=== PATIENT | male | born 1955 | race Caucasian/White ===

== ENCOUNTER 2016-07-22 17:36 | Emergency (ER) | payer MEDICAID ==
[2016-07-22 17:51] VITALS: BP 127/76; PULSE 53; RESP 17; TEMP 97.5; O2SAT 95
--- NOTE | 2016-07-22 18:23 | EDPHY ---
H & P Stated Complaint: Left hand index finger laceration Time Seen by Provider: 07/22/16 18:04 HPI/ROS: CHIEF COMPLAINT: Finger laceration HISTORY OF PRESENT ILLNESS: The patient is a 61-year-old man who comes to the emergency depart with his family. He cut his finger with a skill saw about 1 hour ago. He has a macerated left index finger just distal to the DIP joint. His hands are very dirty. He Does appear to have an open fracture. REVIEW OF SYSTEMS: Constitutional: denies: chills, fever, recent illness, recent injury EENTM: denies: blurred vision, double vision, nose congestion Respiratory: denies: cough, shortness of breath Cardiac: denies: chest pain, irregular heart rate, lightheadedness, palpitations Gastrointestinal/Abdominal: denies: abdominal pain, diarrhea, nausea, vomiting, blood streaked stools Genitourinary: denies: dysuria, frequency, hematuria, pain Musculoskeletal: See HPI Skin: See HPI Neurological: denies: headache, numbness, paresthesia, tingling, dizziness, weakness Hematologic/Lymphatic: denies: blood clots, easy bleeding, easy bruising Immunologic/allergic: denies: HIV/AIDS, transplant EXAM: GENERAL: Well-appearing, well-nourished and in no acute distress. HEAD: Atraumatic, normocephalic. EYES: Pupils equal round and reactive to light, extraocular movements intact, sclera anicteric, conjunctiva are normal. ENT: TMs normal, nares patent, oropharynx clear without exudates. Moist mucous membranes. NECK: Normal range of motion, supple without lymphadenopathy or JVD. LUNGS: Breath sounds clear to auscultation bilaterally and equal. No wheezes rales or rhonchi. HEART: Regular rate and rhythm without murmurs, rubs or gallops. ABDOMEN: Soft, nontender, normoactive bowel sounds. No guarding, no rebound. No masses appreciated. BACK: No CVA tenderness, no spinal tenderness, step-offs or deformities EXTREMITIES: Patient has a large macerated laceration to the left index finger just distal to the DIP. No movement at the DIP joint. Slightly decreased capillary refill. NEUROLOGICAL: Cranial nerves II through XII grossly intact. Normal speech, normal gait. 5/5 strength, normal movement in all extremities, normal sensation PSYCH: Normal mood, normal affect. SKIN: Warm, dry, normal turgor, no visible rashes or lesions. Source: Patient, Family Exam Limitations: No limitations - Personal History Current Tetanus/Diphtheria Vaccine: Yes Current Tetanus Diphtheria and Acellular Pertussis (TDAP): Yes - Medical/Surgical History Hx Asthma: No Hx Chronic Respiratory Disease: No Hx Diabetes: No Hx Cardiac Disease: No Hx Renal Disease: No Hx Cirrhosis: No Hx Alcoholism: No Hx HIV/AIDS: No Hx Splenectomy or Spleen Trauma: No Other PMH: Denies - Family History Significant Family History: No pertinent family hx - Social History Smoking Status: Never smoked Alcohol Use: Sober Drug Use: None Constitutional: Initial Vital Signs Temperature (C) 36.4 C 07/22/16 17:46 Heart Rate 53 L 07/22/16 17:46 Respiratory Rate 17 07/22/16 17:46 Blood Pressure 127/76 H 07/22/16 17:46 O2 Sat (%) 95 07/22/16 17:46 O2 Delivery Mode Room Air Allergies/Adverse Reactions: No Known Allergies Allergy (Unverified 07/22/16 17:46) Home Medications: Medication Instructions Recorded NK [No Known Home Meds] 07/22/16 Medical Decision Making - Diagnostics Imaging Results: Imaging Impressions Finger X-Ray 07/22/16 17:59 Impression: Comminuted, open intraarticular fracture involving base of distal phalanx. Patient has an open fracture to the distal phalanx of left index finger. The proximal aspect of the phalanx his obliterated and it does involve the articular surface. Imaging: I viewed and interpreted images myself Procedures: Procedure: Laceration repair. Verbal consent was obtained from the patient. The macerated left index finger laceration was anesthetized with 0.5% bupivacaine digital block. The wound was irrigated copiously according to protocol, draped and explored to its base. It was approximately 1 cm deep. No foreign body was identified. The wound was repaired with 4 point home PDS, 10 sutures, interrupted. The wound repair was complex with multiple flap realignment and revision . The procedure was performed by myself. A dressing was then placed with sterile gauze and bacitracin. Procedure: Splint placement. A tube gauze and finger aluminum splint was applied. After application of the splint I returned and re-examined the patient. The splint was adequately immobilizing the joint and distal to the splint the patient's circulation and sensation was intact. ED Course/Re-evaluation: Patient tolerated the procedure well. He was given IV antibiotics here and will be taking oral antibiotics home. I discussed the case with Dr. Coleman who agrees with treatment plan. Differential Diagnosis: Partial list of the Differential diagnosis considered include but were not limited to; laceration, open fracture, dislocation and although unlikely based on the history and physical exam, I also considered foreign body, vascular injury. I discussed these differential diagnoses and the plan with the patient as well as the usual and expected course. The patient understands that the diagnosis is provisional and that in medicine we are not always correct and that further workup is often warranted. Usual and customary warnings were given. All of the patient's questions were answered. The patient was instructed to return to the emergency department should the symptoms at all worsen or return, otherwise to followup with the physician as we discussed. - Data Points Medications Given: Discontinued Medications Hydrocodone Bitart/Acetaminophen (Morrison 5/325mg Prepack#6) 1 btl TAKEHOME EDNOW ONE Stop: 07/22/16 19:35 Last Admin: 07/22/16 20:01 Dose: 1 btl Cefazolin Sodium/Dextrose/ (Ceftriaxone Sodium/Dextrose) 50 mls @ 100 mls/hr IV EDNOW ONE PRN Reason: Protocol Stop: 07/22/16 18:56 Last Admin: 07/22/16 18:45 Dose: 50 mls Departure - Departure Disposition: Home, Routine, Self-Care Clinical Impression: Open fracture Finger laceration Qualifiers: Encounter type: initial encounter Qualified Code(s): S61.219A - Laceration without foreign body of unspecified finger without damage to nail, initial encounter Condition: Fair Instructions: Hydrocodone/Acetaminophen (By mouth), Finger Fracture (ED), Finger Laceration (ED) Referrals: Joshua Coleman MD [Medical Doctor] - As per Instructions
[2016-07-22] MEDS ORDERED: DEXTROSE IV ONE (18:27)
[2016-07-22] MEDS ORDERED: CEFTRIAXONE IV ONE (18:27)
[2016-07-22] MEDS ORDERED: CEFAZOLIN IV ONE (18:27)
[2016-07-22] MEDS ORDERED: HYDROCOD/APAP 5/325 PREPACK#6 BTL TAKEHOME ONE (19:34)
== END 2016-07-22 20:04 | disposition home or self-care (01) ==
PROC: 0HQGXZZ Repair Left Hand Skin, External Approach (ICD-10-PCS; principal; 2016-07-22)
DX: S61.211A Laceration without foreign body of left index finger without damage to nail, initial encounter (principal); S62.631B Displaced fracture of distal phalanx of left index finger, initial encounter for open fracture; W31.2XXA Contact with powered woodworking and forming machines, initial encounter
CPT/HCPCS: 96365; J0690; J0696; L3925